=== PATIENT | female | born 1950 | race Caucasian/White ===

== ENCOUNTER 2024-02-27 09:51 | Emergency (ER) | payer MEDICARE, OTHER ==
[~2024-02-27] VITALS: Ht 160 cm; Wt 74.8 kg
[2024-02-27 10:04] VITALS: BP 154/86; TEMP 98.3; O2SAT 99
== END 2024-02-27 11:14 | disposition home or self-care (01) ==
LOC: ER 09:51
DX: S09.8XXA Other specified injuries of head, initial encounter (principal); I10 Essential (primary) hypertension; Z85.850 Personal history of malignant neoplasm of thyroid; W22.8XXA Striking against or struck by other objects, initial encounter; Y93.89 Activity, other specified; Y92.89 Other specified places as the place of occurrence of the external cause; Y99.8 Other external cause status
CPT/HCPCS: 70450-TC